=== PATIENT | female | born 1990 | race Two or more races ===

== ENCOUNTER 2024-04-11 17:57 | Emergency (ER) | payer MEDICAID, SELFPAY ==
[2024-04-11 19:29] VITALS: BP 141/85; PULSE 75; RESP 18; TEMP 36.8; O2SAT 100
--- NOTE | 2024-04-11 19:32 | XR_ITS ---
Examination: Complete OB ultrasound, less than 14 weeks, transabdominal Date and time of exam: April 11, 2024 at 1010 hrs. Indications: Vaginal bleeding beginning 5 hours ago Technique: Obstetrical ultrasound images less than 14 weeks performed via transabdominal imaging Findings: Uterus 12.3 x 5.8 x 8.7 cm Irregular gestational sac 1.5 cm correspondences 6 weeks 2 days gestational age No pole, no cardiac activity Right ovary 2.9 x 1.7 x 1.9 cm arterial flow Left ovary 3.7 x 2.2 x 2.8 cm arterial flow Impression: Empty intrauterine gestational sac corresponding to 6 weeks 2 days gestational age No pole, no cardiac activity Recommend short-term follow-up transvaginal pelvic sonography to exclude embryonic demise
--- NOTE | 2024-04-11 19:34 | PD.EDRME ---
Rapid Medical Screening Exam RME Arrival date/time: 04/11/24 17:57 33 year old female present to ed for c/o of vag bleeding, 7 week I have greeted and performed a focused initial assessment of this patient. A comprehensive ED assessment and evaluation of the patient, analysis of all test results, and completion of the medical decision making process will be conducted by additional ED providers. Chief Complaint: Vaginal Bleeding Vital signs: Vital Signs Temperature 98.2 F 04/11/24 19:29 Pulse Rate 75 04/11/24 19:29 Respiratory Rate 18 04/11/24 19:29 Blood Pressure 141/85 H 04/11/24 19:29 Pulse Oximetry (%) 100 04/11/24 19:29 Oxygen Delivery Method Room Air 04/11/24 19:29
[2024-04-11 19:52] LABS: Collection Type, Urine Voided; WBC,Urine 0 /hpf (0-5)
[2024-04-11 20:02] LABS: Bacteria,Urine Rare; Bilirubin,Urine Negative (Negative); Blood,Urine 3+ (Negative); Clarity,Urine Turbid (Clear/Hazy); Color,Urine Yellow (Lt Yel-Yel); Glucose, Urine Negative (Negative); Ketones,Urine 1+ (Negative); Leukocyte Esterase,Urine Negative (Negative); Nitrite,Urine Negative (Negative); Protein,Urine 1+ (Neg - Trace); RBC,Urine 7 /hpf (0-3); Specific Gravity,Urine 1.028 (1.001-1.035); Squamous Epithelial Cell,Urine 8 /hpf (0-5); Urobilinogen,Urine Negative mg/dL (0.0-1.0)
[2024-04-11 20:04] LABS: Basophils # (Auto) 0.1 Thou/mm3 (0.0-0.2); Basophils % (Auto) 0 % (0-2.5); Eosinophils # (Auto) 0.2 Thou/mm3 (0.0-0.5); Eosinophils % (Auto) 1 % (0-10); Hematocrit 39.9 % (36.0-46.0); Hemoglobin 13.7 g/dL (12.0-16.0); Immature Granulocytes % (Auto) 0 % (0-0); Immature Granulocytes Auto 0.06 Thou/mm3 (0.00-0.00); Lymphocytes # (Auto) 2.8 Thou/mm3 (1.0-4.8); Lymphocytes % (Auto) 18 % (10-50); Mean Corpuscular HGB Conc 34.3 g/dl (31.0-37.0); Mean Corpuscular Hemoglobin 30.2 pg (25.0-35.0); Mean Corpuscular Volume 88 fL (80-100); Monocytes # (Auto) 0.8 Thou/mm3 (0.0-0.8); Monocytes % (Auto) 5 % (0-12); Neutrophils # (Auto) 11.6 Thou/mm3 (1.8-7.7); Neutrophils % (Auto) 75 % (37-80); Nucleated Red Blood Cell % 0 /100 WBC (0); Platelet Count 269 Thou/mm3 (140-440); RDW Standard Deviation 43.1 fL (36.4-46.3); Red Blood Count 4.54 Miln/mm3 (4.00-5.20); White Blood Count 15.4 Thou/mm3 (3.6-11.0)
[2024-04-11 20:26] LABS: Alanine Aminotransferase 39 U/L (10-49); Albumin/Globulin Ratio 1.6 (1.2-2.2); Alkaline Phosphatase 70 U/L (46-116); Anion Gap 7 (7-16); Aspartate Amino Transferase 25 U/L (0-34); BUN/Creatinine Ratio 10 Ratio (12-20); Bilirubin,Total 0.3 mg/dL (0.3-1.2); Blood Urea Nitrogen 9 mg/dL (9-23); Calcium 10.6 mg/dL (8.3-10.6); Calcium (Corrected) 10.6 mg/dL (8.5-10.1); Carbon Dioxide 24.2 mMol/L (20.0-31.0); Chloride 105 mMol/L (98-107); Creatinine (Component) 0.9 mg/dL (0.6-1.3); Globulin 3.1 gm/dL (2.3-3.5); Glucose 96 mg/dL (74-106); Osmolality,Calculated 270 (275-295); Potassium 3.7 mMol/L (3.4-5.1); Sodium 136 mMol/L (136-145); Total Protein 8.1 gm/dL (5.7-8.2); eGFR > 60 See Note
[2024-04-11 20:28] LABS: Prothrombin Time 10.9 Seconds (9.0-12.2)
[2024-04-11 20:31] VITALS: BP 175/77; PULSE 83; RESP 18; TEMP 37.1; O2SAT 96
[2024-04-11 21:12] LABS: Beta HCG,Quantitative 25575 mIU/mL (<5.0)
--- NOTE | 2024-04-11 23:37 | PC.NURSE ---
2335 NA X 2.
--- NOTE | 2024-04-11 23:46 | EDNOTE_ITS ---
ED OB Contraction Preg RMI/HPI General Chief complaint: Vaginal Bleeding Stated complaint: VAG BLEEDING Time Seen by Provider: 04/11/24 23:46 Arrival date/time: 04/11/24 17:57 33 year old female present to emergency room with c/o vaginal bleeding today. pt is currently 7 week . LOCATION: suprapubic SEVERITY: Symptoms are described as being severe with limitations on activities of daily living QUALITY: Symptoms are described as being cramping CONTEXT: The patient is unable to identify any inciting events. DURATION/TIMING: The symptoms started approximately one day ago and have been waxing/waning but always present without ever completely resolving. ASSOCIATED SYMPTOMS: The patient is unable to identify any other associated symptoms. MODIFYING FACTORS: The patient is unable to identify any alleviating or aggravating symptoms. PERTINENT ROS: denies trauma, denies domestic violence, no dysuria or hematuria, no orthostatic symptoms, no nausea or vomiting, no fevers, no anorexia, no diarrhea or constipation REVIEW OF SYSTEMS: See History of Present Illness - with the exception of those mentioned in the history of present illness, all other systems reviewed and reported as negative GENERAL: In general the patient is awake, interactive, in an emergency department gurney. HEAD/EYES/EARS/NOSE/THROAT: normo-cephalic, atraumatic, mucus membranes are moist, anicteric, palpebral conjunctiva is pink, trachea is midline. CARDIOVASCULAR: regular rate and regular rhythm, no murmurs, heart sounds are not distant, strong pulses in all four extremities that are equal and symmetric bilateral upper and lower extremities, normal capillary refill. CHEST/PULMONARY: normal chest rise and fall, good air movement, clear to auscultation bilaterally, normal inspiratory to expiratory ratios without evidence of respiratory distress. NECK: No midline/Paraspinal tenderness, no step off ROM/Strenght intact No Kernig and bruzinski sign. No trauma ABDOMEN: soft, not tender, no masses appreciated BACK: normal range of motion without pain. NEUROLOGICAL: cranio-facial features are symmetric, moves all four extremities equally without obvious limitations or weakness. EXTREMITY: no tenderness to palpation over the long bones or large joints of the bilateral upper and lower extremities, no joint swelling, no joint erythema, no signs of trauma, no unilateral leg swelling and no peripheral edema. SKIN: warm, dry, well-perfused, no jaundice, no rash, no telangiectasias or petechia. PSYCH: calm, cooperative, no evidence of psychosis or agitation RME / HPI RME / HPI Narrative: 04/11/24 17:57 33 year old female present to ed for c/o of vag bleeding, 7 week I have greeted and performed a focused initial assessment of this patient. A comprehensive ED assessment and evaluation of the patient, analysis of all test results, and completion of the medical decision making process will be conducted by additional ED providers. Related Data Home Medications ?Medication ?Instructions ?Recorded ?Confirmed vit no.133-ferrous 1 tab PO QDAY 08/03/19 05/11/20 fumarate 28 mg-folic acid 800 mcg tablet () albuterol sulfate 90 mcg/actuation 2 puff inhalation Q6H PRN Wheezing 05/11/20 05/11/20 aerosol inhaler (ProAir HFA) Previous Rx's ?Medication ?Instructions ?Recorded amoxicillin 875 mg-potassium 1 tab PO BID #14 tabs 08/10/21 clavulanate 125 mg tablet apixaban 5 mg tablet (Eliquis) 5 mg PO BID #60 tabs 08/10/21 Allergies Allergy/AdvReac Type Severity Reaction Status Date / Time No Known Allergies Allergy Verified 08/10/21 00:10 Course Course Course Narrative: This patient presents with vaginal bleeding in the first trimester. DDX includes ectopic, IUP, threatened/inevitable , along with completed . Patient is HDS and without a history of coagulopathy or infectious symptoms. Doubt alternate acute emergent pathology. Plan: bHCG, +/- basic labs, type and screen, TVUS, reassess Quality Measures none Orders Category Date Time Status US OB <= 14 weeks fetus Stat Exams 04/11/24 19:32 Completed ABO/RH Type Stat Lab 04/11/24 19:46 Completed Beta HCG,Quantitative Stat Lab 04/11/24 19:46 Completed CBC Stat Lab 04/11/24 19:46 Completed CMP [Comprehensive Metabolic Panel] Stat Lab 04/11/24 19:46 Completed INR [Prothrombin Time with INR] Stat Lab 04/11/24 19:46 Completed UA [Urinalysis] Stat Lab 04/11/24 19:44 Completed Vital Signs Vital signs: Vital Signs Temperature 98.2 F 04/11/24 19:29 Pulse Rate 75 04/11/24 19:29 Respiratory Rate 18 11/10/24 19:29 Blood Pressure 141/85 H 04/11/24 19:29 Pulse Oximetry (%) 100 04/11/24 19:29 Oxygen Delivery Method Room Air 04/11/24 19:29 Vaginal Bleeding Patient data External records reviewed:: None Clinical information provided by:: patient Social determinants that could affect healthcare access:: none Patient has the following chronic illnesses:: DVT How is presenting disease/condition affected by chronic disease/condition?: uneffected by Evaluation data The following diagnostics were reviewed and interpreted by me:: lab results and radiology exam(s) Lab and/or radiology exams considered but not ordered:: none Interpretation Summary: hc us: Impression: Empty intrauterine gestational sac corresponding to 6 weeks 2 days gestational age No pole, no cardiac activity Recommend short-term follow-up transvaginal pelvic sonography to exclude embryonic demise cbc/cmp no acute findings ua: no uti Medications / Prescriptions Medications or Prescriptions considered but not ordered:: none Medication administrations:: none Consultations Consultation(s) initiated? (list below): No Diagnosis Vaginal Bleeding Differential Diagnosis: missed , threatened , dysfunctional uterine bleeding, menometrorrhagia, incomplete , ectopic without intrauterine , vaginal bleeding and other (uti ) Most likely diagnosis given after review of the tests above:: vaginal bleeding Admission Indicated Admission indicated?: not indicated Admission Request Was there a request for admission?: No Disposition Plan Disposition Plan: Discharge Discharge Attestation Discharge Attestation: The patient and all family members were given an opportunity to ask questions and understood the discharge instructions. Discharge instructions specifically effects, indications for sooner follow up or return to the emergency department, and the expected course of current diagnosis. Patient condition: Stable Discharge Plan Plan Patient Disposition: HOME (Self Care) Prescriptions/Referrals Prescriptions/Med Rec: No Action albuterol sulfate [ProAir HFA] 90 mcg/actuation Hfa Aerosol Inhaler 2 puff INHALATION Q6H PRN (Reason: Wheezing) 28-800 mg-mcg Tablet 1 tab PO QDAY Eliquis 5 mg tablet 5 mg PO BID Qty: 60 0RF amoxicillin-pot clavulanate 875-125 mg tablet 1 tab PO BID Qty: 14 0RF Referrals: Hillary Rivera FNP ([facility]) [Primary Care Provider] - In 1 week Problem List Clinical Impression: Vaginal bleeding during Patient/Caregiver Discharge Instructions Education Materials: Bleeding During Early Print Language: Chinese Stand Alone Forms: Felipa Award Info., Patient Portal Info Letter Attestation MD Attestation The patient was seen by the midlevel practitioner. I, the co-signing physician, was present during the entire ER visit. While I did not physically examine the patient, I was available for consultation as needed.
[2024-04-11 23:55] VITALS: BP 125/67; PULSE 78; RESP 19; TEMP 37.1; O2SAT 99
== END 2024-04-11 23:55 | disposition home or self-care (01) ==
PROVIDERS: Physician Assistant; Emergency Provider Emergency Medicine; PCP Nurse Practitioner Primary Care
DX: O20.9 Hemorrhage in early pregnancy, unspecified (principal); Z3A.01 Less than 8 weeks gestation of pregnancy
CPT/HCPCS: 36415; 76801; 80053; 81001; 84702; 85025; 85610; 86900; 86901; 99284

== ENCOUNTER 2024-10-11 15:46 | Observation (INO) | payer MEDICAID, SELFPAY ==
[2024-10-11] VITALS (16 sets, daily range): BP systolic 131–150; BP diastolic 73–95; PULSE 80–100; RESP 20–99; TEMP 37; O2SAT 92–100; BMI 45.2
== END 2024-10-11 16:50 | disposition home or self-care (01) ==
PROVIDERS: Admitting Provider Specialist; Visit Provider Specialist
DX: Z34.83 Encounter for supervision of other normal pregnancy, third trimester (principal); Z36.9 Encounter for antenatal screening, unspecified; Z3A.32 32 weeks gestation of pregnancy
CPT/HCPCS: 59025; 59899

== ENCOUNTER 2024-11-04 15:18 | Outpatient (CLI) | payer MEDICAID, SELFPAY ==
[2024-11-04] VITALS (17 sets, daily range): BP systolic 131–158; BP diastolic 68–74; PULSE 84–98; RESP 20–97; TEMP 36.3; O2SAT 93–98; BMI 47.0
[2024-11-04] MEDS: BETAMET ACET/BETAMET NA PH (Celestone) 6 MG/ML VIAL 12 MG IM (16:13)
== END 2024-11-04 16:45 | disposition home or self-care (01) ==
LOC: S4S1 15:23 → S4SX 15:23
PROVIDERS: Referring Provider Obstetrics & Gynecology; Visit Provider Obstetrics & Gynecology
DX: Z34.83 Encounter for supervision of other normal pregnancy, third trimester (principal); Z3A.36 36 weeks gestation of pregnancy
CPT/HCPCS: 59025; 96372; J0702

== ENCOUNTER 2024-11-05 15:45 | Outpatient (CLI) | payer MEDICAID, SELFPAY ==
[2024-11-05] VITALS (11 sets, daily range): BP systolic 139–154; BP diastolic 74–80; PULSE 90–104; RESP 20–97; TEMP 36.4; O2SAT 95–97; BMI 47.6
[2024-11-05] MEDS: BETAMET ACET/BETAMET NA PH (Celestone) 6 MG/ML VIAL 12 MG IM (16:40)
--- NOTE | 2024-11-05 16:56 | PC.NURSE ---
1648 pt discharge labor precautions, kick counts, pre eclampsia reviewed, copy given, pt agrees/understands
== END 2024-11-05 16:48 | disposition home or self-care (01) ==
LOC: S4S1 15:46 → S4SX 15:47
PROVIDERS: Referring Provider Specialist; Visit Provider Specialist
DX: Z34.83 Encounter for supervision of other normal pregnancy, third trimester (principal); Z36.89 Encounter for other specified antenatal screening; Z3A.36 36 weeks gestation of pregnancy
CPT/HCPCS: 59025; 96372; J0702

== ENCOUNTER 2024-11-08 15:49 | Inpatient (IN) | payer MEDICAID, SELFPAY ==
--- NOTE | 2024-11-06 02:22 | ESHP_ITS ---
RE: SAGE VELASQUEZ : 1990 DATE OF ADMISSION: 11/08/2024 HISTORY OF PRESENT ILLNESS: This is a 34-year-old 2 para 1 with due date of 12/01 with intrauterine at 36w5d gestation, who came to the office complaining of decreased movement. Her NST in the office showed minimal variability without accelerations. She came to [facility] and had a BPP which was 2 out of 8. NST shows minimal variability and we are proceeding with an emergent Delivery as soon as the team is assembled. Her care was complicated by chronic hypertension with superimposed preeclampsia without severe features. The patient has been on labetalol 100 mg b.i.d. throughout her as well as aspirin. She subsequently was noted to have increased protein in the urine in the office, so a PIH workup was done on 11/01, which revealed 1019 mg of protein over 24 hours. Her other PIH labs were in the normal range. She denies any headache, change in visual or right upper quadrant pain. The patient's was also complicated by a history of deep vein thrombosis after her last delivery in 2019, so the patient has been on a prophylactic dose of Lovenox throughout the ; however, she discontinued this medication and the last time she took her Lovenox was on 11/07 at 13:00. PAST MEDICAL HISTORY: Chronic hypertension, gestational diabetes mellitus, class A1, deep vein thrombosis, urinary tract infection in due to enterococcus, history of preeclampsia in her in 2019, ventral hernia, and asthma. PAST SURGICAL HISTORY: Ventral hernia repair in 05/2020 with placement of Ventralex mesh for 2.0 cm ventral hernia and delivery in 08/2019. SOCIAL HISTORY: She denies any alcohol or drug use or smoking. OBSTETRIC HISTORY: 08/2019, 36 weeks delivery, 5 pound 1 ounce female complicated by preeclampsia and development of deep vein thrombosis . FAMILY HISTORY: Breast cancer, diabetes, migraine headaches, hypertension, heart disease, hypothyroidism, and myocardial infarction. PHYSICAL EXAMINATION: VITAL SIGNS: Blood pressure 130/84, heart rate 88, respirations 18, and temperature is 98.6. HEENT: Oropharynx and sclerae are clear. LUNGS: Clear to auscultation bilaterally. HEART: Regular rate and rhythm. ABDOMEN: Old Pfannenstiel scar noted and old midabdominal scar noted. Gravid, term size. EXTREMITIES: Nontender. SKIN: No gross rashes or lesions. NEUROLOGIC: No focal deficits. ASSESSMENT AND PLAN: Intrauterine at 36w5d, Category 2 tracing trending to Category 3, Emergent Delivery . Chronic hypertension with superimposed preeclampsia without severe features, gestational diabetes mellitus, class A1, well controlled, previous delivery, elects repeat delivery, history of deep vein thrombosis, on prophylactic Lovenox discontinued 11/07 at 13:00. DT: 23:23:30 TT: 02:20:00 Ref: [id number] - TID: [id number] MTDD
[2024-11-08] VITALS (33 sets, daily range): BP systolic 117–191; BP diastolic 67–133; PULSE 73–104; RESP 11–99; TEMP 36.3–36.8; O2SAT 95–99; BMI 47.0
--- NOTE | 2024-11-08 14:59 | XR_ITS ---
Examination: Biophysical profile, ultrasound Date and time of exam: November 08, 2024 1508 hours INDICATIONS: Decreased movement beginning 2 days ago, nonreactive NST in the doctor's office today Technique: Multiple transabdominal sonographic images of the pelvis abdomen obtained. Attention is directed to the breathing movement, gross body movement, amniotic fluid volume and tone. Findings: Amniotic fluid index 15.7 cm Total biophysical profile is 4 of 8. breathing movement is 2. Gross body movement is 0 tone is 0 Qualitative amniotic fluid volume is 2 Impression: Biophysical profile is 4 of 8.
[2024-11-08] MEDS: CITRIC ACID/SODIUM CITR 15 ML UDC (BICITRA) 30 ML PO (16:18)
[2024-11-08] MEDS: ceFAZolin/D5W 2 GM IV 2 GM/100 ML BAG IV (16:18)
[2024-11-08] MEDS: FAMOTIDINE INJ 10 MG/ML VIAL 2 ML 20 MG IV (16:18)
[2024-11-08 16:28] LABS: Basophils # (Auto) 0.1 Thou/mm3 (0.0-0.2); Basophils % (Auto) 0 % (0-2.5); Eosinophils # (Auto) 0.2 Thou/mm3 (0.0-0.5); Eosinophils % (Auto) 1 % (0-10); Hematocrit 38.4 % (36.0-46.0); Hemoglobin 12.9 g/dL (12.0-16.0); Immature Granulocytes % (Auto) 2 % (0-0); Immature Granulocytes Auto 0.38 Thou/mm3 (0.00-0.00); Lymphocytes # (Auto) 2.3 Thou/mm3 (1.0-4.8); Lymphocytes % (Auto) 15 % (10-50); Mean Corpuscular HGB Conc 33.6 g/dl (31.0-37.0); Mean Corpuscular Hemoglobin 29.6 pg (25.0-35.0); Mean Corpuscular Volume 88 fL (80-100); Monocytes # (Auto) 1.5 Thou/mm3 (0.0-0.8); Monocytes % (Auto) 10 % (0-12); Neutrophils # (Auto) 11.1 Thou/mm3 (1.8-7.7); Neutrophils % (Auto) 72 % (37-80); Nucleated Red Blood Cell # 0.02 Thou/mm3 (0.00-0.00); Nucleated Red Blood Cell % 0 /100 WBC (0); Platelet Count 177 Thou/mm3 (140-440); RDW Standard Deviation 44.6 fL (36.4-46.3); Red Blood Count 4.36 Miln/mm3 (4.00-5.20); White Blood Count 15.6 Thou/mm3 (3.6-11.0)
[2024-11-08 16:39] LABS: Potassium 4.1 mMol/L (3.4-5.1); Sodium 138 mMol/L (136-145)
[2024-11-08 16:40] LABS: Alanine Aminotransferase 16 U/L (10-49); Albumin, Serum 3.7 gm/dL (3.5-5.0); Albumin/Globulin Ratio 1.4 (1.2-2.2); Alkaline Phosphatase 105 U/L (46-116); Anion Gap 12 (7-16); Aspartate Amino Transferase 21 U/L (0-34); BUN/Creatinine Ratio 14 Ratio (12-20); Bilirubin,Total 0.3 mg/dL (0.3-1.2); Blood Urea Nitrogen 11 mg/dL (9-23); Calcium (Corrected) 9.2 mg/dL (8.5-10.1); Carbon Dioxide 21.6 mMol/L (20.0-31.0); Chloride 104 mMol/L (98-107); Creatinine (Component) 0.8 mg/dL (0.6-1.3); Estimated Creatinine Clearance 117.7 mL/min (>60); Globulin 2.6 gm/dL (2.3-3.5); Glucose 99 mg/dL (74-106); Osmolality,Calculated 275 (275-295); Total Protein 6.3 gm/dL (5.7-8.2); Uric Acid 5.9 mg/dL (3.1-7.8); eGFR > 60 See Note
[2024-11-08 16:53] LABS: Fibrinogen 502 mg/dL (175-375); INR 0.9 (0.9-1.3); Partial Thromboplastin Time 22.9 Seconds (22.0-36.0); Prothrombin Time 10.3 Seconds (9.0-12.2)
[2024-11-08 16:56] LABS: Syphilis Nonreactive (Nonreactive)
[2024-11-08 17:14] LABS: PCO2, Arterial Cord Blood 65 mmHg (41-58); PO2, Arterial Cord Blood 40 mmHg (12-24)
[2024-11-08 17:14] LABS: Collection Type, Urine Catheter; WBC,Urine 0 /hpf (0-5)
[2024-11-08 17:15] LABS: pCO2, Venous Cord Blood 109 mmHg (33-44); pO2, Venous Cord Blood 47 mmHg (23-35)
[2024-11-08 17:25] LABS: PH, Arterial Cord Blood 7.14 (7.23-7.33); pH, Venous Cord Blood 6.86 (7.30-7.40)
[2024-11-08 17:39] LABS: Bilirubin,Urine Negative (Negative); Blood,Urine Trace (Negative); Clarity,Urine Clear (Clear/Hazy); Color,Urine Lt-Yellow (Lt Yel-Yel); Glucose, Urine Negative (Negative); Ketones,Urine Negative (Negative); Leukocyte Esterase,Urine Negative (Negative); Nitrite,Urine Negative (Negative); PH,Urine 6.5 (5.0-7.0); Protein,Urine 1+ (Neg - Trace); RBC,Urine 1 /hpf (0-3); Specific Gravity,Urine 1.009 (1.001-1.035); Squamous Epithelial Cell,Urine 2 /hpf (0-5); Urobilinogen,Urine Negative mg/dL (0.0-1.0)
--- NOTE | 2024-11-08 17:56 | PC.SS ---
DIRECTOR AUDIENCE MARKETING responded to [employer]. DIRECTOR AUDIENCE MARKETING met with father (Sai) of infant. DIRECTOR AUDIENCE MARKETING offered emotional support. FOB requested that mother in law, [place]; be brought back to room to join FOB. DIRECTOR AUDIENCE MARKETING escorted in-law ([place]) to room. OB presented herself and informed FOB and mother in law that infant . OB informed FOB and mother in law that patient would be brought to the room shortly. was brought to room to allow FOB to hold. Mother in law requested that DIRECTOR AUDIENCE MARKETING inform and escort father in law (Manish) to the room. DIRECTOR AUDIENCE MARKETING informed father in law (Manish) of expiring. FOB and in laws present in room offering support to one another. Patient was then brought to the room. [employer]il[employer]aker [employer] services declined at present time. DIRECTOR AUDIENCE MARKETING informed nursing staff social work supervisor available as needed. DIRECTOR AUDIENCE MARKETING provided update to supervisor coffee.
[2024-11-08] MEDS: OXYTOCIN in NS 20 units 20 UNIT/1,000 ML BAG 125 UNIT IV ×2 (18:15→21:20)
[2024-11-08] MEDS: LABETALOL INJ 5 MG/ML VIAL 20 ML 40 MG IV (19:00)
--- NOTE | 2024-11-08 19:16 | PC.NURSE ---
approx 184- Mother of patient came out of room asking to speak with Dr. Holland. unavailable, with a stat case in OR. Will be notified as soon as possible. Asked mother of patient if there is anything that I could help her with. Patient states I need him to tell her that even if she would have came Friday the baby would have I asked her if she was having any symptoms on friday. Mother responded the following She stopped feeling the baby move on Friday and I know that she is going to blame herself for this Reassured mother that MD Holland will be at bedside to talk to patient as soon as he is available.
--- NOTE | 2024-11-08 19:20 | PC.NURSE ---
Addendum entered by Theresa Rucker RN, RN 11/08/24 19:35: 1648- When call made to MD ojeda, he was responding to a Post Hemorrhage. Original Note: approx 1648- CALL MADE TO MD OJEDA, UNABLE TO DETECT HEART TONES AND HE IS NEEDED IN OB OR STAT. 1650- DEEPA Hummel AND MYSELF ABLE TO FIND HEART TONES AT 133 FOR ABOUT A MINUTE. MD IN ROUTE TO OR AND PT BEING PREPPED FOR EMERGENCY .
[2024-11-08] MEDS: hydrALAZINE INJ 20 MG/ML VIAL 10 MG IVP (19:40)
--- NOTE | 2024-11-08 19:40 | ESOP_ITS ---
Operative Note - MASTER MACHINIST Procedure Date of procedure: 11/08/24 Procedure Performed: Repeat low-transverse section Via Pfannenstiel skin incision Indication: Intrauterine at 36w5d, Category 2 tracing trending to Category 3 (variability minimal but present) Chronic hypertension with superimposed preeclampsia without severe features Gestational diabetes mellitus, class A1, well controlled, Previous delivery, elects repeat delivery History of deep vein thrombosis, on prophylactic Lovenox discontinued 11/07 at 13:00. Pre-Op diagnosis: Intrauterine at 36w5d, Category 2 tracing trending to Category 3 (variability minimal but present) Chronic hypertension with superimposed preeclampsia without severe features Gestational diabetes mellitus, class A1, well controlled, Previous delivery, elects repeat delivery History of deep vein thrombosis, on prophylactic Lovenox discontinued 11/07 at 13:00 Post-Op diagnosis: Intrauterine at 36w5d, Category 2 tracing trending to Category 3 (variability minimal but present) Chronic hypertension with superimposed preeclampsia without severe features Gestational diabetes mellitus, class A1, well controlled, Previous delivery, elects repeat delivery History of deep vein thrombosis, on prophylactic Lovenox discontinued 11/07 at 13:00 Complete placental abruption Anesthesia type: Spinal Procedure description: After proper informed consent was obtained and the patient made aware of the risk complications alternatives and benefits of the proposed procedure she was taken to the operating room emergently. She underwent placement of rapid spinal anesthesia. She was prepped and draped emergently. A timeout was performed. A Pfannenstiel skin incision was made and the incision was carried through to the underlying layer of fascia. The fascia was nicked in the midline and the incision extended bilaterally with the Macario scissors. The inferior aspect of the fascia was grasped with the Gwendolyn clamps elevated and the underlying rectus muscle was dissected off with the Macario scissors. The rectus muscles were in the midline. The peritoneum was grasped with 2 Macario clamps and entered sharply with the Metzenbaum scissors. The incision was extended superiorly and inferiorly with good visitation of the bladder. The bladder blade was then inserted. A low transverse incision was made with a scalpel. The incision was extended bilaterally digitally. The infant delivered immediately the cord was clamped and cut and the infant was handed handed off to the waiting pediatric staff. Placenta was completely abrupted. The placenta was completely from the wall of the uterus. The uterus was exteriorized and cleared of all clots and debris. The uterine incision was repaired with #1-0 chromic catgut suture in a running interlocking fashion. A second layer of the same suture was used to imbricate the first layer and obtain excellent hemostasis. The fundus was firm and she was hemodynamically stable and the uterus was returned to the abdomen. The gutters were cleared of all clots and debris. The peritoneum closed with 0 chromic catgut suture in a running fashion. The muscle was closed with 0 chromic suture in a running fashion. The fascia was closed with 0 Vicryl beginning at each angle and ending at the center in a running fashion. The subcutaneous tissue was irrigated with normal saline solution and found to be hemostatic and closed with 2-0 chromic suture in a running fashion. The skin was closed with 4-0 Monocryl and covered with Dermabond pernio dressing. A sterile drape pressure dressing was applied. Specimen: other (Placenta) Estimated blood loss (ml): 800 Findings: Fetus pale, poor tone, no respiratory effort. Placenta complete abruption. Uterus ovaries fallopian tubes grossly within normal limits. Complications: none (no surgical complications. ) Surgical staff Anesthesia: Rapid spinal Translational Specialist: Joe Cast CRNA 1st [employer] Order Clerk: Candace MONET Operation Date: 11/08/24 16:45 <No data on this case meets the specified criteria> Diagnosis Discharge Diagnosis (1) Chronic hypertension with superimposed preeclampsia: Status: Acute (2) Gestational diabetes: Status: Acute (3) Placental abruption: Status: Acute (4) delivery delivered: Status: Acute Problem List Completed Was Problem List Reviewed/Reconciled?: Yes (2) Gestational diabetes Qualifiers: Gestational diabetes mellitus control: diet-controlled Trimester: second trimester Qualified Code(s): O24.410 - Gestational diabetes mellitus in , diet controlled (3) Placental abruption Qualifiers: Trimester: third trimester Qualified Code(s): O45.93 - Premature separation of placenta, unspecified, third trimester
--- NOTE | 2024-11-08 20:16 | PD.LDDS ---
DS: Providers Provider Date of admission: 11/08/24 15:49 Primary care physician: Physician No Primary/Family Admitting Provider: Carlos Holland MD Attending Provider on Admission: Carlos Holland MD Consults: 11/08/24 18:07 Referral Routine Comment: Attending Provider on DC: Carlos Holland MD Discharging Provider: Carlos Holland MD DS: Diagnosis Problem List Completed Was Problem List Reviewed/Reconciled?: Yes Summary/Hosp Course Brief History: See notes. Peripartum Data Delivery Method: Low Transverse Episiotomy Description: None Procedures: Procedures Operation Date: 11/08/24 16:45 <No data on this case meets the specified criteria> 1: Disposition of : Time Spent with Patient Time attestation: Exam Vital Signs Temp Pulse Resp BP Pulse Ox O2 Del Method 98.3 F 82 14 191/115 H 96 Room Air 11/08/24 18:47 11/08/24 19:40 11/08/24 18:47 11/08/24 19:40 11/08/24 18:47 11/08/24 18:47 Discharge Plan Plan Patient Disposition: HOME (Self Care) Patient condition on transfer: Stable Prescriptions/Referrals Prescriptions/Med Rec: New labetalol 400 mg tablet 400 mg PO BID Qty: 60 1RF Continued enoxaparin 40 mg/0.4 mL syringe 40 mg subcut DAILY Patient Comments: INJECT 1 SYRINGE SUBCUTANEOUSLY ONCE DAILY Discontinued 28-800 mg-mcg Tablet 1 tab PO QDAY labetalol 100 mg tablet 100 mg PO BID Patient Comments: TAKE 1 TABLET BY MOUTH TWICE DAILY Referrals: No Primary/Family,Physician [Primary Care Provider] - Patient/Caregiver Discharge Instructions Discharge Activity: activity as tolerated Other Discharge Activity Instructions:: Follow up office 1 week. She already has a Rx for hydrocodone at home. Education Materials: C Section Dc Print Language: Maori Stand Alone Forms: Felipa Award Info., Patient Portal Info Letter Planned Discharge Date 11/10/24
--- NOTE | 2024-11-08 20:17 | OBDSUM_ITS ---
Data ([facility]) Data Hx Section: Yes : 2 Term: 1 : 0 Livin Abortions: Spontaneous & Theraputic: 0 Delivery Data ([facility]) Labor Data Induction/Augmentation Agent: None ROM date: 11/08/24 ROM time: 16:57 Amniotic membrane rupture type: Artificial Amniotic fluid description: Bloody Delivery Data EDC: 12/01/24 EDC calculated by:: LMP/early US confirmation Onset of labor date: 11/08/24 Onset of labor time: 16:54 delivery date: 11/08/24 delivery time: 16:57 Gestational age (weeks): 36 Gestational age (days): 5 Placenta delivery date: 11/08/24 Placenta delivery time: 16:58 Delivered by: arielle ojeda Delivery nurse: donn Clinton nurse: eber Hand Splitter at delivery: Yes Support person(s) at delivery: Outside of OR Other staff at delivery: chuck Santiago t. sauceda, RT, ICU STAFF, Delivery Method Delivery method: Low Transverse Presentation: Vertex Anesthesia Type Anesthesia Type: None Anesthesia type: Spinal Placenta Placenta delivery description: Spontaneous (Complete abruption ) Placenta Disposition: Sent to Pathology Cord blood sent to lab: Yes cord blood collection: Cord Blood Type, Arterial Cord Blood Gas and Venous Cord Blood Gas Episiotomy Episiotomy description: None EBL Estimated blood loss (ml): 800 Umbilical Cord cord description: 3 Vessels Additional Procedures None Complications Complications: No surgical complications. [facility] Data ([facility]) [facility] order: 1 [facility] gender: Female weight (gms): 6 lb 12 oz 1 minute: 0 5 minutes: 0 10 minutes: 0
[2024-11-08] MEDS: KETOROLAC INJ 30 MG/ML VIAL IVP (20:30)
--- NOTE | 2024-11-08 20:42 | CHAP ---
Called in after hours to pray with family concerning a demise. I gave a blessing for the child at the family's request. I also gave some words of comfort. The family was very appreciative and thanked me.
[2024-11-08] MEDS: LABETALOL 100 MG TABLET 400 MG PO (22:08)
--- NOTE | 2024-11-08 22:25 | PC.NURSE ---
RN contacting saturation diver services- Lyle Tejada at bedside prayer/baby blessing provided @ 2035, Carmen and Damon () given list of [facility] mortuaries pt requesting for [facility] services, [facility] services & Donor network contacted and aware of stillborn delivery. Patient given memory box, stillborn memory card, list of support groups available, footprints/handprints given to parents. Social service consult ordered, pt to inform staff when ready for [facility] services to come for .
[2024-11-08 23:28] LABS: Basophils # (Auto) 0.1 Thou/mm3 (0.0-0.2); Basophils % (Auto) 0 % (0-2.5); Eosinophils # (Auto) 0.1 Thou/mm3 (0.0-0.5); Eosinophils % (Auto) 1 % (0-10); Hematocrit 35.3 % (36.0-46.0); Hemoglobin 12.5 g/dL (12.0-16.0); Immature Granulocytes % (Auto) 1 % (0-0); Lymphocytes # (Auto) 1.9 Thou/mm3 (1.0-4.8); Lymphocytes % (Auto) 10 % (10-50); Mean Corpuscular HGB Conc 35.4 g/dl (31.0-37.0); Mean Corpuscular Hemoglobin 29.9 pg (25.0-35.0); Mean Corpuscular Volume 84 fL (80-100); Monocytes # (Auto) 1.3 Thou/mm3 (0.0-0.8); Monocytes % (Auto) 7 % (0-12); Neutrophils # (Auto) 15.2 Thou/mm3 (1.8-7.7); Neutrophils % (Auto) 81 % (37-80); Nucleated Red Blood Cell % 0 /100 WBC (0); Platelet Count 163 Thou/mm3 (140-440); RDW Standard Deviation 44.1 fL (36.4-46.3); Red Blood Count 4.18 Miln/mm3 (4.00-5.20); White Blood Count 18.7 Thou/mm3 (3.6-11.0)
[2024-11-09] VITALS (8 sets, daily range): BP systolic 131–146; BP diastolic 83–88; PULSE 85–98; RESP 16–20; TEMP 36.6–37.1; O2SAT 95–98
[2024-11-09] MEDS: ceFAZolin/D5W 2 GM IV 2 GM/100 ML BAG IV ×3 (00:56→17:23)
--- NOTE | 2024-11-09 03:54 | PD.ADDPROG ---
Addendum Progress Note Addendum Date of report being addended: 11/09/24 Narrative: Just prior to taking the patient back to the OR for an Emergent delivery I was called into Room 453 where patient Bora Corrales was fully dilated experiencing a prolonged deceleration. She was not responding to intrauterine resusitative measures and was placed in the knee chest position when I arrived. After the tracing recovered I found that she was Fully dilated and 3 + station and we encourged her to push. I told the handle machine operator Mell to contact another OBGYN to come immediately to cover Bora so I could proceed with the C section. I was told that no one was responding and that I did not have any one to back me up. As prolonged decels returned and her expulsive effort was suboptimal I proceeded to perform a vacuum delivery. Patient sustained a 3rd degree perineal laceration. I asked Mell the RN if Arleen Posadas CNM could come and monitor Bora bleeding while I did the C section but they were unable to contact any CNM. I told them to take Carmen to the OR immediately as I proceeded to repair the 3rd degree laceration. Just as I finished I ran to the OR and the spinal had just been completed and we proceeded to do an Emergent C section.
[2024-11-09] MEDS: KETOROLAC INJ 30 MG/ML VIAL IVP ×3 (04:48→19:28)
--- NOTE | 2024-11-09 06:15 | PC.NURSE ---
Pt ambulated to restroom with assist. Denies any dizziness or lightheadedness. Pt tolerated well. Pt not able to void at this time. Pt encourage to drink more fluids.
[2024-11-09] MEDS: ENOXAPARIN SOD INJ 40 MG/0.4 ML SYRINGE SC (08:30)
[2024-11-09] MEDS: LABETALOL 100 MG TABLET 400 MG PO ×2 (08:31→20:40)
[2024-11-09] MEDS: SIMETHICONE 80 MG CHEW PO (08:41)
--- NOTE | 2024-11-09 09:00 | CHAP ---
Went in to speak with the mother of the still born . I saw her last night and had prayer with her and her family. I gave her some words of comfort as best I could.
--- NOTE | 2024-11-09 11:22 | ESPR_ITS ---
Subjective Subjective Interval history: Delivery type: for acute placental abruption with stillbirth Patient doing well this morning. No acute complaints. Ambulating, tolerating p.o. and voiding without difficulty. HTN/Pre-Eclampsia screen: No chest pain, shortness of breath, headache, visual changes, epigastric or right upper quadrant pain. Breast-feeding, lochia diminishing. Bowel: Flatus+/ BM+ Exam Vital Signs Temp Pulse Resp BP Pulse Ox O2 Del Method 97.8 F 97 16 131/83 H 95 Room Air 11/09/24 11:05 11/09/24 11:05 11/09/24 11:05 11/09/24 11:05 11/09/24 11:05 11/09/24 11:05 Constitutional Constitutional: no acute distress Routine HEENT Exam Head: Present normocephalic and atraumatic Eye: Present EOMI and PERRL ENT: Present mucous membranes moist Routine Neck Exam Neck: Present supple and trachea midline Routine Respiratory Exam Respiratory: Present chest non-tender, lungs clear, normal breath sounds and no resp distress Routine Cardiovascular Exam Cardiovascular: Present RRR Routine Abdominal Exam Abdominal: Present soft and normoactive bowel sounds Routine Extremities Exam Extremities: Present full ROM Routine Skin Exam Skin: Present intact, dry and warm Routine Neurological Exam Neurological: Present alert, oriented X3 and CN II-XII intact Routine Psychiatric Exam Psychiatric: Present normal affect and normal thought process Objective Labs 11/08/24 23:20 11/08/24 16:10 Labs: Laboratory Results - last 24 hr 11/08/24 11/08/24 16:10 23:20 WBC 15.6 H 18.7 H RBC 4.36 4.18 Hgb 12.9 12.5 Hct 38.4 35.3 L MCV 88 84 MCH 29.6 29.9 MCHC 33.6 35.4 RDW Std Deviation 44.6 44.1 Plt Count 177 163 Neut % (Auto) 72 81 H Lymph % (Auto) 15 10 Taylor % (Auto) 10 7 Eos % (Auto) 1 1 Baso % (Auto) 0 0 Neut # (Auto) 11.1 H 15.2 H Lymph # (Auto) 2.3 1.9 Taylor # (Auto) 1.5 H 1.3 H Eos # (Auto) 0.2 0.1 Baso # (Auto) 0.1 0.1 Immature Gran # (Auto) 0.38 H 0.20 H Absolute Nucleated RBC 0.02 H 0.00 Immature Gran % 2 H 1 H Nucleated RBC % 0 0 PT 10.3 INR 0.9 APTT 22.9 Fibrinogen 502 H Sodium 138 Potassium 4.1 Chloride 104 Carbon Dioxide 21.6 Anion Gap 12 BUN 11 Creatinine 0.8 Estim Creat Clear Calc 117.7 eGFR > 60 BUN/Creatinine Ratio 14 Glucose 99 Calculated Osmolality 275 Uric Acid 5.9 Calcium 9.0 Corrected Calcium 9.2 Total Bilirubin 0.3 AST 21 ALT 16 Alkaline Phosphatase 105 Total Protein 6.3 Albumin 3.7 Globulin 2.6 Albumin/Globulin Ratio 1.4 Ur Collection Type Catheter Urine Color Lt-Yellow Urine Clarity Clear Urine pH 6.5 Ur Specific [place] 1.009 Urine Protein 1+ A Urine Glucose (UA) Negative Urine Ketones Negative Urine Blood Trace Urine Nitrite Negative Urine Bilirubin Negative Urine Urobilinogen (Auto) Negative Ur Leukocyte Esterase Negative Urine RBC 1 Urine WBC 0 Ur Squamous Epith Cells 2 Urine Bacteria None Syphilis Serology Nonreactive Blood Type O Positive Antibody Screen NEGATIVE Crossmatch See Detail Blood Bank Wristband ID Yes Assessment & Plan Problem List (1) Chronic hypertension with superimposed preeclampsia: Status: Acute (2) Gestational diabetes: Status: Acute (3) Placental abruption: Status: Acute (4) delivery delivered: Status: Acute Assessment and plan: 1. Continue routine /post-op care 2. Labs reviewed, cbc appropriate 3. Remove dressing/Diaz 4. Encourage to ambulate, shower 5. Encourage PO intake, breast feeding Time Spent With Patient Time: Total time spent is greater than 50% in coordination of care (as documented) at patient's floor/unit and/or counseling patient:
--- NOTE | 2024-11-09 14:14 | PC.NURSE ---
RN informed hide stretcher hand had not been called at this time. Payroll And Benefits Coordinator called at 1324. Pia crum on floor at 1355.
[2024-11-10] MEDS: SIMETHICONE 80 MG CHEW PO (01:33)
[2024-11-10] MEDS: ceFAZolin/D5W 2 GM IV 2 GM/100 ML BAG IV (01:33)
[2024-11-10] MEDS: HYDROcodone/APAP 5/325 TABLET 1 TAB PO (01:33)
[2024-11-10 03:42] VITALS: BP 145/90; PULSE 90; RESP 17; TEMP 36.7; O2SAT 97
--- NOTE | 2024-11-10 07:19 | PD.LDPPPRG ---
Subjective Subjective Interval history: Patient is coping well with significant family and friends support. She does not have a history of depression in her prior . She has not needed any medication for anxiety. She is taking hydrocodone with pain and she is got adequate pain relief. She already has a prescription for hydrocodone at home. She is voiding and ambulating and tolerating a regular diet. She is passing flatus. She denies any headache change in vision or right upper quadrant pain. Her blood pressure is controlled with labetalol at 400 mg p.o. twice daily. She denies any chest pain palpitation shortness of breath or lower extremity pain. She is aware of the signs of DVT from her prior experience and she will watch carefully for the signs and symptoms including chest pain and shortness of breath. She will continue on the Lovenox until 6 weeks . Exam Vital Signs Temp Pulse Resp BP Pulse Ox O2 Del Method 98.1 F 90 17 145/90 H 97 Room Air 11/10/24 03:42 11/10/24 03:42 11/10/24 03:42 11/10/24 03:42 11/10/24 03:42 11/10/24 03:42 Routine Respiratory Exam Comments: Clear to auscultation bilaterally Routine Cardiovascular Exam Comments: Regular rate and rhythm Routine Abdominal Exam Comments: Incision clear and intact fundus is firm Routine Extremities Exam Comments: Nontender no edema no erythema Objective Labs 11/08/24 23:20 11/08/24 16:10 Assessment & Plan Problem List (1) Chronic hypertension with superimposed preeclampsia: Status: Acute Assessment and plan: Controlled with labetalol 400 mg p.o. twice daily Check blood pressure twice a day at home or anytime she is not feeling well and keep a log and bring it in to the office in 1 week Expect to decrease labetalol dosages as the weeks go on (2) Gestational diabetes: Status: Acute Assessment and plan: Stop ADA diet. Begin regular diet. No deed to check blood sugars. (3) Placental abruption: Status: Acute (4) delivery delivered: Status: Acute Assessment and plan: Discussed the signs and symptoms of DVT and pulmonary embolism and patient instructed to come to the emergency room immediately if the symptoms develop. Continue Lovenox 400 mg subcu daily until 6 weeks Follow-up in the office in 1 week Discharge instructions given Discussed support group information given to her by social service Instructed to call the office immediately at any time if she has any concerns Ambien as needed insomnia Xanax as needed anxiety
[2024-11-10] MEDS: HYDROcodone/APAP 5/325 TABLET 2 TAB PO (07:46)
[2024-11-10] MEDS: ENOXAPARIN SOD INJ 40 MG/0.4 ML SYRINGE SC (07:47)
[2024-11-10 07:55] VITALS: BP 149/90; PULSE 99
[2024-11-10] MEDS: LABETALOL 100 MG TABLET 400 MG PO (07:55)
--- NOTE | 2024-11-10 09:00 | CHAP ---
Patient was getting ready to leave and her friends and family were in the room. I gave her more words of encouragement and let her know that she went with our prayers.
--- NOTE | 2024-11-10 11:30 | PC.SS ---
NUMERICAL CONTROL LATHE OPERATOR conducted bedside contact with the patient.? Present with patient was spouse and patient?s mother.? NUMERICAL CONTROL LATHE OPERATOR offered condolences to the patient and family members.? NUMERICAL CONTROL LATHE OPERATOR provided the patient with resources ([facility]) to address demise.? Patient receptive to resource information.? Patient?s mother confirmed patient possessing family support.? Spouse confirmed that family will be present as patient proceeds with grieving process.? Patient acknowledged possessing appropriate system of support.?
== END 2024-11-10 11:40 | disposition home or self-care (01) | DRG 540 ==
LOC: S4S1 16:01 → S4SX 16:01 → S4NX 17:06
PROVIDERS: Pediatrics; Admitting Provider Specialist; Referring Provider Specialist; Visit Provider Specialist
PROC: 10D00Z1 Extraction of Products of Conception, Low, Open Approach (ICD-10-PCS; CPT 59514; principal; 2024-11-08 16:30)
DX: O34.211 Maternal care for low transverse scar from previous cesarean delivery (principal); Z37.0 Single live birth; Z3A.36 36 weeks gestation of pregnancy; O14.94 Unspecified pre-eclampsia, complicating childbirth; O24.420 Gestational diabetes mellitus in childbirth, diet controlled; O45.93 Premature separation of placenta, unspecified, third trimester; O76 Abnormality in fetal heart rate and rhythm complicating labor and delivery
CPT/HCPCS: 36415; 59025; 59409; 76819; 80053; 81001; 82803; 84450; 84550; 85025; 85384; 85610; 85730; 86780; 86850; 86900; 86901; 86923; 92551; 94762; A4314; A4649; J0360; J0689; J1650; J1885; J2250; J2274; J2371; J2590; J3490; A9270; J1920; J2270

== ENCOUNTER → 2024-11-16 | Outpatient (CLI) | payer MEDICAID, SELFPAY ==
--- NOTE | 2024-11-16 16:13 | XR_ITS ---
Examination: Venous duplex lower extremity sonogram, bilateral. Date and time of exam: November 16, 2024 1628 hours Postop , history right leg DVT September 13, 2019, bilateral leg tenderness today Technique: Multiple sonographic images of the deep venous system have been obtained. B-mode/2-D grayscale imaging of vascular structures and Doppler spectral analysis (waveforms) and color performed Both legs are examined. Findings: Deep venous systems do not demonstrate abnormal echogenicity. All visualized deep veins exhibit compressibility. All visualized deep veins exhibit augmentation. Impression: Negative for deep vein thrombosis
== END | disposition home or self-care (01) ==
PROVIDERS: PCP Nurse Practitioner Primary Care; Referring Provider Specialist; Visit Provider Specialist
DX: M79.606 Pain in leg, unspecified (principal)
CPT/HCPCS: 93970

== ENCOUNTER → 2025-01-25 | Outpatient (CLI) | payer MEDICAID, SELFPAY ==
--- NOTE | 2025-01-25 12:47 | XR_ITS ---
Examination: Knee, right , 3 views Technique: Knee AP, lateral, oblique 3 views Date and time of exam: Hours Indications: Patient fell 6 years ago with injury to the right knee, right knee pain. Findings: Mild right knee tricompartment osteoarthritis. No fracture or dislocation Impression: No fracture or dislocation
== END | disposition home or self-care (01) ==
LOC: CDIM 12:33
PROVIDERS: PCP Nurse Practitioner; Referring Provider Nurse Practitioner; Visit Provider Nurse Practitioner
DX: S89.91XA Unspecified injury of right lower leg, initial encounter (principal); W19.XXXA Unspecified fall, initial encounter
CPT/HCPCS: 73562

== ENCOUNTER → 2025-04-23 | Outpatient (CLI) | payer MEDICAID, SELFPAY ==
--- NOTE | 2025-04-23 09:15 | XR_ITS ---
Exam: MRI knee without contrast, right Date and time of exam: April 23, 2025, 0905 hours INDICATIONS: Anterior knee pain joint locking 5 years worse the last 2 months Technique: Multiple axial, coronal, and sagittal sections on the knee have been obtained. T2-Weighted sagittal, fat-suppressed images, TR 3,500, TE 62, T2 weighted coronal fat-saturated images, TR 3,500, TE 62 Proton density sagittal sections, TR 1800, TE 31. T-1 weighted coronal images, TR 524, TE 13.0 Findings: Medial meniscus anterior horn intact. Medial meniscus, body intact. Posterior horn medial meniscus large vertical tear is near the inner margin and midportion of the meniscus. Lateral meniscus anterior horn is intact Lateral meniscus, body is intact Posterior horn lateral meniscus is intact Anterior cruciate ligament absent. Posterior cruciate ligament appears intact. Knee effusion is moderate. Quadriceps and patellar tendons appear intact. There is no evidence of tendinosis. Inflammatory change or fracture of Hoffa's fat pad is not seen. Medial patellar facet demonstrates mild thinning. Lateral patellar facet cartilage demonstrates mild thinning. Trochlear cartilage demonstrates mild thinning. Marrow signal adequate. Medial collateral ligament appears intact. No meniscocapsular separation is seen. Illiotibial band and fibular collateral ligament are intact. Biceps femoris tendons appear intact. Medial femoral condylar articular cartilage demonstrates mild thinning. Lateral femoral condylar articular cartilage demonstrates mild thinning. Tibial plateau cartilage demonstrates mild thinning. Impression: Large vertical tears posterior horn medial meniscus Complete tear anterior cruciate ligament
== END | disposition home or self-care (01) ==
LOC: SMRI 08:48
PROVIDERS: PCP Nurse Practitioner; Referring Provider Nurse Practitioner; Visit Provider Nurse Practitioner
DX: S83.241A Other tear of medial meniscus, current injury, right knee, initial encounter (principal); S83.511A Sprain of anterior cruciate ligament of right knee, initial encounter; X58.XXXA Exposure to other specified factors, initial encounter
CPT/HCPCS: 73721